=== PATIENT | male | born 1990 | race Asian ===

== ENCOUNTER 2017-10-20 22:21 | Emergency (ER) | payer MEDICAID ==
[~2017-10-20] VITALS: Ht 188 cm; Wt 89.1 kg
[2017-10-20 22:29] VITALS: BP 136/74
[2017-10-20] MEDS ORDERED: IBUPROFEN 200 MG TABLET PO ONE (23:00)
[2017-10-20] MEDS ORDERED: ACETAMINOPHEN 325 MG TABLET PO ONE ×2 (23:00)
== END 2017-10-20 23:35 | disposition home or self-care (01) ==
LOC: ED 23:05
DX: B34.9 Viral infection, unspecified (principal)
CPT/HCPCS: 87081; 87147; 87880; 99284